=== PATIENT | female | born 1965 | race Hispanic/Latino ===

== ENCOUNTER → 2019-07-30 | Day surgery (SDC) | payer OTHER ==
[~2019-07-30] MED LIST: FENTANYL CITRATE/PF 100MCG/2 ML INJ ONE; GABAPENTIN100 MG PO; GLIPIZIDE5 MG PO; JANUVIA100 MG PO; MELOXICAM7.5 MG PO; METFORMIN HCL500 MG PO; MIDAZOLAM HCL 2 MG/2 ML VIAL ONE; NIFEDIPINE10 MG PO; OMEPRAZOLE40 MG PO; PROPOFOL IV EMULSION 10 MG/ML 50 ML VIAL ONE; SERTRALINE HCL50 MG PO; VICTOZA 2-0.6 MG/0.1 PO
--- OUTSIDE RECORDS SUMMARY | 2019-07-30 06:07 | XMS REPORT ---
Author Author Hedii Kidd [facility] eClinicalWorks Address Unknown Phone Unavailable Care Team Providers Care Telecommunicator Name Role Phone Heidi Kidd Unavailable Allergies, Adverse Reactions, Alerts Substance Reaction Event Type Vicodin Info Not Available Drug Allergy Pravastatin Sodium Info Not Available Drug Allergy Potassium Info Not Available Drug Allergy Hydrocodone-Ibuprofen Info Not Available Drug Allergy Almotriptan Malate Info Not Available Drug Allergy Encounters Encounter Location Date refill meloxicam Abhay Villela MD May 27, 2015 refill- Gabapentin Abhay Villela MD Aug 01, 2015 RX / Patient in Pain Abhay Villela MD Dec 16, 2015 8-10 FOLLOW UP Abhay Villela MD February 22, 2016 MALLORY+ Abhay Villela MD March 24, 2015 mother in pain Abhay Villela MD April 14, 2015 MALLORY+ Abhay Villela MD April 07, 2015 Problems Problem Type Condition ICD-9 Code Onset Dates Condition Status Assessment Polyarthralgia M25.50 Active Problem Polyarthralgia 719.49 Active Assessment Myalgia M79.1 Active Assessment Pain in left foot M79.672 Active Problem Polyarthralgia M25.50 Active Problem Pain in left foot M79.672 Active Problem Myalgia M79.1 Active Problem Fibromyalgia 729.1 Active Problem Abnormal MALLORY 795.79 Active Problem Other specified arthritis, 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 Active Problem Insomnia G47.00 Active Medications Medication Code System Code Instructions Start Date End Date Status Dosage Januvia MEDISPAN [address]-06 100 MG Orally Once a day Active 1 tablet [facility] [address]-29 50 MG Orally Once a day Active 1 tablet [facility] [address]-78 300 MG Orally 2 tabs bid Active 1 capsule Sonata [facility] [address]-66 10 MG Orally one qhs Nov 15, 2015 Active 1 capsule at bedtime as needed Nabumetone [facility] [address]-73 500 MG Orally Twice a day Active 1 tablet Furosemide [facility] [address]-05 20 MG Orally Once a day Active 1 tablet Crestor [facility] [address]-36 40 MG Orally Once a day Active 1 tablet Metformin & Diet Manage Prod Unknown 0 500 MG Orally Active as directed Lantus SoloStar [facility] [address]-47 100 UNIT/ML Subcutaneous Active as directed NIFEdipine [facility] [address]-91 10 MG Orally Three times a day Active 1 capsule Social History Social History Element Qualifiers Date Reported Diet: no. February 22, 2016 Tobacco Use: . Are you a:: never smoker February 22, 2016 Marital Status: . February 22, 2016 Caffeine: yes. 1-5, frequency: February 22, 2016 Exercise: no. February 22, 2016 Alcohol: no. February 22, 2016 Occupation: . house February 22, 2016 Vital Signs Date/Time: February 22, 2016 Weight 266 lbs Height 65 in Temperature 98.3 F Cardiac Monitoring Heart Rate 72 /min Blood Pressure Diastolic 70 mm Hg Blood Pressure Systolic 118 mm Hg Summary Purpose eClinicalWorks Submission
--- OUTSIDE RECORDS SUMMARY | 2019-07-30 06:07 | XMS REPORT ---
Author Author [facility] Address Unknown Phone Unavailable Care Team Providers Care Social Worker Masters Name Role Phone Unavailable Unavailable Problems This patient has no known problems. Allergies, Adverse Reactions, Alerts This patient has no known allergies or adverse reactions. Medications This patient has no known medications. Results Test Description Test Time Test Comments Text Results Atomic Results Result Comments SCR MAMM BILATERAL TEA CAD DIGITAL 2018-11-18 08:19:35 - SCR MAMM BILATERAL TEA CAD DIGITALBILATERAL DIGITAL SCREENING MAMMOGRAM 3D/2D WITH CAD: 11/17/2018CLINICAL: Asymptomatic. Digital breast tomosynthesis was performed in addition to routine CC and MLO views. Current mammographic images were evaluated by either a [employer] M-Vu or a [employer] ImageChecker CAD (computer aided detection system). Comparison is made to exams dated 09/18/2017 mammogram, 06/14 mammogram, and 04/01/2015 mammogram - [facility]-. There are scattered fibroglandular tissues in both breasts. There are benign calcifications in both breasts. There also is mild vascular calcification in the right breast. Additionally, there is a stable benign-appearing focal asymmetry in the left breast. No suspicious mass, architectural distortion, malignant type calcification, or lymph node abnormality detected. Breast architecture is stable compared to prior exams.IMPRESSION: BENIGNThere is no mammographic evidence of malignancy. Resume annual screening mammography in one year. Ahsan Sethi M.D. rb/:11/18/2018 08:19:35 Attending Technologist: Kiara MOELLER [facility]-FWImaging Technologist: Olga MOELLER, [facility]-FWletter sent: BIRADS 1-2 Normal Mammogram BI-RADS: 2 Benign
--- OUTSIDE RECORDS SUMMARY | 2019-07-30 06:07 | XMS REPORT ---
Author Author Abhay Villela [facility] eClinicalWorks Address Unknown Phone Unavailable Care Team Providers Care Concrete Conveyor Operator Name Role Phone Abhay Villela Unavailable Encounters Encounter Location Date refill meloxicam Abhay Villela MD May 27, 2015 MALLORY+ Abhay Villela MD March 24, 2015 mother in pain Abhay Villela MD April 14, 2015 MALLORY+ Abhay Villela MD April 07, 2015 Problems Problem Type Condition ICD-9 Code Onset Dates Condition Status Problem Abnormal MALLORY 795.79 Active Problem Polyarthralgia 719.49 Active Problem Fibromyalgia 729.1 Active Assessment Polyarthralgia 719.49 Active Medications Medication Code System Code Instructions Start Date End Date Status Dosage Meloxicam MEDISPAN 88402563593 15 Orally Once a day Active TAKE 1 TABLET BY MOUTH DAILY Social History Social History Element Qualifiers Date Reported Diet: no. April 07, 2015 Tobacco Use: . Are you a:: never smoker April 07, 2015 Marital Status: . April 07, 2015 Caffeine: yes. 1-5, frequency: April 07, 2015 Exercise: no. April 07, 2015 Alcohol: no. April 07, 2015 Occupation: . house April 07, 2015 Summary Purpose eClinicalWorks Submission
--- OUTSIDE RECORDS SUMMARY | 2019-07-30 06:07 | XMS REPORT | Continuity of Care Document ---
Author Author [facility] Address Unknown Phone Unavailable Care Team Providers Care Legal Support Specialist Name Role Phone [employer] Unavailable Unavailable Problems Problem Status Onset Date Classification Date Reported Comments Source Abnormal MALLORY Active Problem 03/07/2016 Hilario Villela Polyarthralgia Active Problem 03/07/2016 Hilario Villela Fibromyalgia Active Problem 03/07/2016 Hilario Villela Polyarthralgia Active Problem 03/07/2016 Hilario Villela Pain in left foot Active Problem 03/07/2016 Hilario Villela Myalgia Active Problem 03/07/2016 Hilario Villela Other specified arthritis, multiple sites Active Problem 03/07/2016 Hilario Villela Insomnia Active Problem 03/07/2016 Hilario Villela Medications Medication Details Route Status Patient Instructions Ordering Provider Order Date Source Tramadol HCl 1 tablet as needed Orally Active 50 MG Orally every 8 hrs prn for pain Villela 03/02/2016 Hilariojamila Villela Nabumetone 1 tablet Orally Active 500 MG Orally Twice a day Andra 12/19/2015 Hilario Villela Sonata 1 capsule at bedtime as needed Orally Active 10 MG Orally one qhs Kidd 11/15/2015 Hilario Villela Meloxicam 1 tablet Orally Active 15 MG Orally Once a day Andra 03/24/2015 Hilario Villela Meloxicam TAKE 1 TABLET BY MOUTH DAILY Orally Active 15 Orally Once a day [place] Hilario Villela Januvia 1 tablet Orally Active 100 MG Orally Once a day Kidd Hilario Villela Sertraline HCl 1 tablet Orally Active 50 MG Orally Once a day Kidd Hilario Villela Gabapentin 1 capsule Orally Active 300 MG Orally 2 tabs bid Kidd Hilario Villela Nabumetone 1 tablet Orally Active 500 MG Orally Twice a day Kidd Hilario Villela Furosemide 1 tablet Orally Active 20 MG Orally Once a day Kidd Hilario Villela Crestor 1 tablet Orally Active 40 MG Orally Once a day Kidd Hilario Villela Metformin & Diet Manage Prod as directed Orally Active 500 MG Orally Kiddangel Villela Lantus SoloStar as directed Subcutaneous Active 100 UNIT/ML Subcutaneous Kiddangel Villela NIFEdipine 1 capsule Orally Active 10 MG Orally Three times a day Kiddangel Villela Allergies, Adverse Reactions, Alerts Substance Category Reaction Severity Reaction type Status Date Reported Comments Source Vicodin Adverse Reaction Info Not Available Adverse Reaction Active 02/22/2016 Hilario Villela Pravastatin Sodium Adverse Reaction Info Not Available Adverse Reaction Active 02/22/2016 Hilario Villela Potassium Adverse Reaction Info Not Available Adverse Reaction Active 02/22/2016 Hilario Villela Hydrocodone-Ibuprofen Adverse Reaction Info Not Available Adverse Reaction Active 02/22/2016 Hilario Villela Almotriptan Malate Adverse Reaction Info Not Available Adverse Reaction Active 02/22/2016 Hilario Villela Immunizations No Data Provided for This Section Results No Data Provided for This Section Pathology Reports No Data Provided for This Section Diagnostic Reports No Data Provided for This Section Consultation Notes No Data Provided for This Section Discharge Summaries No Data Provided for This Section History and Physicals No Data Provided for This Section Vital Signs Vital Sign Value Date Comments Source Weight 266 02/22/2016 Hilario Villela Height 65 02/22/2016 Hilario Villela Temperature Oral (F) 98.3 F 02/22/2016 Hilario Villela Heart Rate 72 02/22/2016 Hilario Villela Diastolic (mm Hg) 70 02/22/2016 Hilario Villela Systolic (mm Hg) 118 02/22/2016 Hilario Villela Weight 266 03/24/2015 Hilario Villela Height 62 03/24/2015 Hilario Villela Temperature Oral (F) 98.7 F 03/24/2015 Hilario Villela Heart Rate 78 03/24/2015 Hilario Villela Diastolic (mm Hg) 90 03/24/2015 Hilario Villela Systolic (mm Hg) 130 03/24/2015 Hilario Villela Encounters Location Location Details Encounter Type Encounter Number Reason For Visit Attending Provider ADM Date DC Date Status Source MD MALLORY Sarah+ [id number] 03/24/2015 03/24/2015 MD MALLORY Davis+ [id number] 03/24/2015 03/24/2015 Hilario Villela MD MALLORY+ [id number] 03/24/2015 03/24/2015 Hilario Villela MD MALLORY+ [id number] 03/24/2015 03/24/2015 Hilario Villela MD MALLORY+ [id number] 03/24/2015 03/24/2015 Hilario Villela MD MALLORY+ [id number] 04/07/2015 04/07/2015 Hilario Villela MD MALLORY+ [id number] 04/07/2015 04/07/2015 Hilario Villela MD MALLORY+ [id number] 04/07/2015 04/07/2015 Hilario Villela MD MALLORY+ [id number] 04/07/2015 04/07/2015 Hilario Villela MD mother in pain [id number] 04/14/2015 04/14/2015 Hilario Villela MD mother in pain [id number] 04/14/2015 04/14/2015 Hilario Villela MD mother in pain [id number] 04/14/2015 04/14/2015 Hilario Villela MD mother in pain [id number] 04/14/2015 04/14/2015 Hilario Villela MD refill meloxicam [id number] 05/27/2015 05/27/2015 Hilario Villela MD refill meloxicam [id number] 05/27/2015 05/27/2015 Hilario Villela MD refill meloxicam [id number] 05/27/2015 05/27/2015 Hilario Villela MD refill meloxicam [id number] 05/27/2015 05/27/2015 Hilario Villela MD refill- Gabapentin [id number] 08/01/2015 08/01/2015 Hilario Villela MD refill- Gabapentin [id number] 08/01/2015 08/01/2015 Hilario Villela MD refill- Gabapentin [id number] 08/01/2015 08/01/2015 Hilario Villela MD RX / Patient in Pain [id number] 12/16/2015 12/16/2015 Hilario Villela MD RX / Patient in Pain [id number] 12/16/2015 12/16/2015 Hilario Villela MD RX / Patient in Pain [id number] 12/16/2015 12/16/2015 Hilario Villela MD 8-10 FOLLOW UP [id number] 02/22/2016 02/22/2016 Hilario Villela MD 8-10 FOLLOW UP [id number] 02/22/2016 02/22/2016 Hilario Villela MD Pain [id number] 03/02/2016 03/02/2016 Hilario Villela Procedures No Data Provided for This Section Assessment and Plan No Data Provided for This Section Plan of Care No Data Provided for This Section Social History Social History Date Source Social History ElementQualifiersDate Reported Diet: no. February 22, 2016 Tobacco Use: . Are you a:: never smoker February 22, 2016 Marital Status: . February 22, 2016 Caffeine: yes. 1-5, frequency: February 22, 2016 Exercise: no. February 22, 2016 Alcohol: no. February 22, 2016 Occupation: . house February 22, 2016 02/22/2016 Hilario Villela Family History No Data Provided for This Section Advance Directives No Data Provided for This Section Functional Status No Data Provided for This Section
--- OUTSIDE RECORDS SUMMARY | 2019-07-30 06:07 | XMS REPORT ---
Author Author Cherelle Silverman Organization eClinicalWorks Address Unknown Phone Unavailable Care Team Providers Care Metal Expediter Name Role Phone Cherelle Silverman Unavailable Encounters Encounter Location Date refill meloxicam Abhay Villela MD May 27, 2015 refill- Gabapentin Abhay Villela MD Aug 01, 2015 RX / Patient in Pain Abhay Villela MD Dec 16, 2015 MALLORY+ Abhay Villela MD March 24, 2015 mother in pain Abhay Villela MD April 14, 2015 MALLORY+ Abhay Villela MD April 07, 2015 Problems Problem Type Condition ICD-9 Code Onset Dates Condition Status Problem Insomnia G47.00 Active Problem Fibromyalgia 729.1 Active Problem Other specified arthritis, 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 Active Problem Abnormal MALLORY 795.79 Active Problem Polyarthralgia 719.49 Active Medications Medication Code System Code Instructions Start Date End Date Status Dosage Nabumetone MEDISPAN [address]-12 500 MG Orally Twice a day Dec 19, 2015 January 18, 2016 Active 1 tablet Social History Social History Element Qualifiers Date Reported Diet: no. Nov 15, 2015 Tobacco Use: . Are you a:: never smoker Nov 15, 2015 Marital Status: . Nov 15, 2015 Caffeine: yes. 1-5, frequency: Nov 15, 2015 Exercise: no. Nov 15, 2015 Alcohol: no. Nov 15, 2015 Occupation: . house Nov 15, 2015 Summary Purpose eClinicalWorks Submission
--- OUTSIDE RECORDS SUMMARY | 2019-07-30 06:07 | XMS REPORT ---
Author Author Abhay Villela eClinicalWorks Address Unknown Phone Unavailable Care Team Providers Care Residence Hall Director Name Role Phone Abhay Villela CP Unavailable Encounters Encounter Location Date refill meloxicam Abhay Villela MD May 27, 2015 refill- Gabapentin Abhay Villela MD Aug 01, 2015 RX / Patient in Pain Abhay Villela MD Dec 16, 2015 8-10 FOLLOW UP Abhay Villela MD February 22, 2016 MALLORY+ Abhay Villela MD March 24, 2015 mother in pain Abhay Villlea MD April 14, 2015 MALLORY+ Abhay Villela MD April 07, 2015 Pain Abhay Villela MD March 02, 2016 Problems Problem Type Condition ICD-9 Code Onset Dates Condition Status Problem Polyarthralgia 719.49 Active Problem Polyarthralgia M25.50 Active Problem Pain in left foot M79.672 Active Problem Myalgia M79.1 Active Problem Fibromyalgia 729.1 Active Problem Abnormal MALLORY 795.79 Active Problem Other specified arthritis, 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 Active Problem Insomnia G47.00 Active Medications Medication Code System Code Instructions Start Date End Date Status Dosage Tramadol HCl [facility] [address]-60 50 MG Orally every 8 hrs prn for pain March 02, 2016 May 01, 2016 Active 1 tablet as needed Social History Social History Element Qualifiers Date Reported Diet: no. February 22, 2016 Tobacco Use: . Are you a:: never smoker February 22, 2016 Marital Status: . February 22, 2016 Caffeine: yes. 1-5, frequency: February 22, 2016 Exercise: no. February 22, 2016 Alcohol: no. February 22, 2016 Occupation: . house February 22, 2016 Summary Purpose eClinicalWorks Submission
--- OUTSIDE RECORDS SUMMARY | 2019-07-30 06:07 | XMS REPORT ---
Author Author Cherelle Silverman Organization eClinicalWorks Address Unknown Phone Unavailable Care Team Providers Care Graphic Specialist Name Role Phone Cherelle Silverman Unavailable Allergies, Adverse Reactions, Alerts Substance Reaction Event Type Vicodin Info Not Available Drug Allergy Pravastatin Sodium Info Not Available Drug Allergy Potassium Info Not Available Drug Allergy Hydrocodone-Ibuprofen Info Not Available Drug Allergy Almotriptan Malate Info Not Available Drug Allergy Encounters Encounter Location Date MALLORY+ Abhay Villela MD March 24, 2015 Problems Problem Type Condition ICD-9 Code Onset Dates Condition Status Problem Polyarthralgia 719.49 Active Assessment Abnormal MALLORY 795.79 Active Problem Abnormal MALLORY 795.79 Active Assessment Polyarthralgia 719.49 Active Medications Medication Code System Code Instructions Start Date End Date Status Dosage Metformin & Diet Manage Prod Unknown 0 500 MG Orally Active as directed [facility] [address]-26 10 MG Orally Three times a day Active 1 [facility] [address]-40 300 MG Orally 1 in am and 2 at night Active 1 capsule Meloxicam [facility] [address]-10 15 MG Orally Once a day March 24, 2015 May 23, 2015 Active 1 tablet Januvia MEDISPAN [address]-46 100 MG Orally Once a day Active 1 tablet [facility]ertral[facility] [address]-79 50 MG Orally Once a day Active 1 tablet [facility]uro[facility]ide [facility] [address]-69 20 MG Orally Once a day Active 1 tablet Crestor [facility] [address]-43 40 MG Orally Once a day Active 1 tablet Social History Social History Element Qualifiers Date Reported Diet: no. April 07, 2015 Tobacco Use: . Are you a:: never smoker April 07, 2015 Marital Status: . April 07, 2015 Caffeine: yes. 1-5, frequency: April 07, 2015 Exercise: no. April 07, 2015 Alcohol: no. April 07, 2015 Occupation: . house April 07, 2015 Vital Signs Date/Time: March 24, 2015 Weight 266 lbs Height 62 in Temperature 98.7 F Cardiac Monitoring Heart Rate 78 /min Blood Pressure Diastolic 90 mm Hg Blood Pressure Systolic 130 mm Hg Results SJOGREN'S ANTIBODIES (SS-A,SS-B) SJOGREN'S ANTIBODY (SS-A)(-<1.0 NEG AI) <1.0 NEG SJOGREN'S ANTIBODY (SS-B)(-<1.0 NEG AI) <1.0 NEG SM AND SM/MOLD SHEET CLEANER ANTIBODIES SM ANTIBODY(-<1.0 NEG AI) <1.0 NEG SM/MOLD SHEET CLEANER ANTIBODY(-<1.0 NEG AI) <1.0 NEG MALLORY IFA SCREEN W/REFL TO TITER AND PATTERN, IFA MALLORY SCREEN, IFA(-NEGATIVE ) NEGATIVE HISTONE ANTIBODIES HISTONE AB(- U) <1.0 URINALYSIS, COMPLETE HYALINE CAST(-NONE SEEN /LPF) 0-1 SPECIFIC GRAVITY(-1.001-1.035 ) 1.025 AMORPHOUS SEDIMENT(-NONE OR FEW /HPF) FEW PH(-5.0-8.0 ) 5.0 BACTERIA(-NONE SEEN /HPF) FEW COLOR(-YELLOW ) YELLOW SQUAMOUS EPITHELIAL CELLS(-< OR=5 /HPF) 6-10 APPEARANCE(-CLEAR ) CLOUDY COMMENTS(- ) FEW MUCOUS THREADS PROTEIN(-NEGATIVE ) NEGATIVE KETONES(-NEGATIVE ) NEGATIVE RBC(-< OR=2 /HPF) 0-2 OCCULT BLOOD(-NEGATIVE ) NEGATIVE WBC(-< OR=5 /HPF) 6-10 GLUCOSE(-NEGATIVE ) 3+ LEUKOCYTE ESTERASE(-NEGATIVE ) TRACE BILIRUBIN(-NEGATIVE ) NEGATIVE NITRITE(-NEGATIVE ) NEGATIVE PROTEIN, TOTAL AND PROTEIN ELECTROPHORESIS W/ REFL VLADIMIR GAMMA GLOBULINS(-0.6-1.6 g/dL) 1.3 BETA GLOBULINS(-0.8-1.4 g/dL) 1.1 XRPBE-2-CEVYGCIJK(-0.5-1.0 g/dL) 0.7 ULALD-6-RWBNDIEJK(-0.1-0.3 g/dL) 0.2 ALBUMIN(-3.5-4.7 g/dL) 3.9 PROTEIN, TOTAL(-6.1-8.1 g/dL) 7.2 URIC ACID URIC ACID(-2.5-7.0 mg/dL) 3.8 CYCLIC CITRULLINATED PEPTIDE (CCP) AB (IGG) CYCLIC CITRULLINATED PEPTIDE (CCP) AB (IGG)(- UNITS) <16 TSH, 3RD GENERATION TSH(- mIU/L) 1.70 C3, C4, COMPLEMENT COMPLEMENT, TOTAL (CH50)(-31-60 U/mL) >60 COMPLEMENT COMPONENT C4C(-ADULTS: 16-47 mg/dL) 25 COMPLEMENT COMPONENT C3C(- mg/dL) 159 CREATINE KINASE, TOTAL CREATINE KINASE, TOTAL(-29-143 U/L) 35 DS DNA-Crithidia Ifa w/ Reflex DNA AB (DS) CRITHIDIA,IFA(-NEGATIVE ) NEGATIVE Summary Purpose eClinicalWorks Submission
[2019-07-30 09:35] VITALS: BP 115/71
== END | disposition home or self-care (01) ==
LOC: OR 05:47
PROVIDERS: ATTEND Internal Medicine Gastroenterology
DX: K29.70 Gastritis, unspecified, without bleeding (principal); K44.9 Diaphragmatic hernia without obstruction or gangrene; K64.8 Other hemorrhoids; Z71.3 Dietary counseling and surveillance; E11.9 Type 2 diabetes mellitus without complications; E66.01 Morbid (severe) obesity due to excess calories; I10 Essential (primary) hypertension; M32.9 Systemic lupus erythematosus, unspecified; E78.00 Pure hypercholesterolemia, unspecified; F41.9 Anxiety disorder, unspecified; F32.9 Major depressive disorder, single episode, unspecified; Z88.6 Allergy status to analgesic agent; Z88.8 Allergy status to other drugs, medicaments and biological substances; Z01.810 Encounter for preprocedural cardiovascular examination; Z79.84 Long term (current) use of oral hypoglycemic drugs; Z68.42 Body mass index [BMI] 45.0-49.9, adult
CPT/HCPCS: 36415; 43239; 45378; 82948; 88305; 88312; 93005; J2250; J3010